=== PATIENT | male | born 1955 | race Caucasian/White ===

== ENCOUNTER 2020-07-15 08:44 | Day surgery (SDC) | payer OTHER ==
[~2020-07-15 08:44] MED LIST: Sodium Chloride 0.9% 10 ML Syringe FLUSH PRN
[2020-07-15] MEDS ORDERED: Midazolam 1 MG/ML 2 ML SDV ONE ×2 (08:56→09:44)
[2020-07-15] MEDS ORDERED: Propofol 200 MG/20 ML SDV ONE ×3 (08:56→10:37)
[2020-07-15] MEDS: Lactated Ringers 1,000 ML IV SCH (09:23)
--- NOTE | 2020-07-15 09:48 | PCM.PN ---
- General Info Date of Service: 07/15/20 - Review of Systems Systems Review Comment:: 64-year-old male referred for his initial screening colonoscopy. He denies any recent changes in bowel pattern. He denies any known family history of colon cancer. The patient's recent history and physical is reviewed and no significant changes are noted. I have discussed the proposed colonoscopy with the patient. Instructions and expectations reviewed. I have discussed with him the risks involved with colonoscopy including but not limited to bleeding and GI injury. He agrees to proceed. - Patient Data Vitals - Most Recent: Last Vital Signs Temp 97.6 F 07/15/20 09:16 Pulse 88 07/15/20 09:16 Resp 18 07/15/20 09:16 BP 167/82 H 07/15/20 09:16 Pulse Ox 95 07/15/20 09:16 Weight - Most Recent: 96.615 kg Med Orders - Current: Current Medications Lactated Ringer's (Ringers, Lactated) 1,000 mls @ 125 mls/hr IV ASDIRECTED JAMES Last Admin: 07/15/20 09:23 Dose: 125 mls/hr Documented by: Sodium Chloride (Saline Flush) 10 ml FLUSH ASDIRECTED PRN PRN Reason: Keep Vein Open Discontinued Medications Midazolam HCl (Versed 1 Mg/Ml) Confirm Administered Dose 2 mg .ROUTE .STK-MED ONE Stop: 07/15/20 08:57 Propofol (Diprivan 20 Ml) Confirm Administered Dose 400 mg .ROUTE .STK-MED ONE Stop: 07/15/20 08:57 Sepsis Event Note - Focused Exam Vital Signs: Vital Signs Temp Pulse Resp BP Pulse Ox 07/15/20 09:16 97.6 F 88 18 167/82 H 95 - Problem List Review Problem List Initiated/Reviewed/Updated: Yes - Assessment Assessment:: Colon cancer screening - Plan Plan:: Colonoscopy
--- NOTE | 2020-07-15 10:56 | PCM.OPNOTE ---
- General Post-Op/Procedure Note Date of Surgery/Procedure: 07/15/20 Operative Procedure(s): Colonoscopy with polypectomy Findings: Colon polyps x2 and sigmoid colon Tortuous colon Pre Op Diagnosis: Colon cancer screening Post-Op Diagnosis: Colon polyps Anesthesia Technique: MAC Primary Surgeon: Dennis Bonilla Pathology: Colon polyps EBL in mLs: 2 Complications: None Condition: Good
--- NOTE | 2020-07-15 13:19 | OR ---
Date of Procedure: 07/15/2020 PREOPERATIVE DIAGNOSIS: Colon cancer screening. POSTOPERATIVE DIAGNOSIS: Colon polyps. OPERATIONS PERFORMED: Colonoscopy with polypectomy. INDICATIONS FOR SURGERY: This 64-year-old male is seen today for his initial screening colonoscopy. He denies any recent changes in bowel pattern or family history of colon cancer. FINDINGS: Two polyps were noted in the sigmoid colon. First is a 1-cm semipedunculated polyp located 15 cm from the anal verge. The other is a 15-mm pedunculated and sessile polyp located at 35 cm from the anal verge. The remainder of the colon and terminal ileum appeared normal except for marked tortuosity. DESCRIPTION OF PROCEDURE: The patient was taken to the operating room. He was given intravenous sedation, and with him in the left lateral decubitus position, digital rectal exam was performed showing no rectal masses. The Olympus colonoscope was inserted into the rectum. Retroflexed examination of the rectal canal was performed. The scope was then advanced to the distal sigmoid region where the above-described polyp was identified. This was removed with a cautery snare and retrieved into a polyp trap. The scope was then advanced further into the sigmoid region where the more proximal above-described polyp was identified. This polyp was removed grossly in its entirety piecemeal with cautery snare. Small bleeding was noted and this was controlled with cautery. The scope was then carefully advanced under direct visualization through the entire length of the colon until the cecum was reached. This was difficult because of the marked tortuosity of the colon and required extensive hand pressure and changes in patient position, but eventually the cecum is able to be cannulated and clearly identified. The ileocecal valve and appendiceal orifice were identified. The light was noted to transilluminate the abdominal wall in the right lower quadrant. The ileocecal valve was cannulated and the terminal ileum examined and appeared normal. The scope was then slowly withdrawn sequentially re- examining the colonic segments until the entire colon and rectum had been fully examined. Polypectomy sites were examined as the scope was withdrawn and no sign of bleeding or any other complication was noted. The scope was removed. The patient was taken from the operating room in satisfactory condition. ESTIMATED BLOOD LOSS: 2 mL. COMPLICATIONS: None. PROGNOSIS: Good. JANIS Bonilla MD /[id number]
== END 2020-07-15 11:55 | disposition home or self-care (01) ==
LOC: LL.SDS 08:44
PROVIDERS: ATTEND Surgery
DX: Z12.11 Encounter for screening for malignant neoplasm of colon (principal); D12.5 Benign neoplasm of sigmoid colon; Q43.8 Other specified congenital malformations of intestine
CPT/HCPCS: 00812; J2250; J2704; J7120

== ENCOUNTER 2023-05-10 08:57 | Day surgery (SDC) | payer MEDICARE, OTHER ==
[~2023-05-10 08:57] MED LIST changes: +Lactated Ringers 1,000 ML IV SCH; +Midazolam 1 MG/ML 2 ML SDV ONE; +Propofol 200 MG/20 ML SDV ONE
[2023-05-10] MEDS ORDERED: Propofol 200 MG/20 ML SDV ONE (11:00)
== END 2023-05-10 11:26 | disposition home or self-care (01) ==
LOC: LL.SDS 08:57
PROVIDERS: ATTEND Surgery
DX: Z12.11 Encounter for screening for malignant neoplasm of colon (principal); I10 Essential (primary) hypertension; Z86.010 Personal history of colon polyps; Z79.899 Other long term (current) drug therapy
CPT/HCPCS: 00812; J2250; J2704; J7120